=== PATIENT | female | born 1960 | race African-American/Black ===

== ENCOUNTER 2016-10-30 09:15 | Emergency (ER) | payer OTHER ==
--- NOTE | 2016-10-30 09:50 | ED.PDOC ---
History of Present Illness - General Chief Complaint: Eye Problems Stated Complaint: FELL Time Seen by Provider: 10/30/16 09:35 Source: patient Exam Limitations: no limitations - History of Present Illness Initial Comments: FELL 2 D AGO. TRIPPED ON CURB AT HOME AND R FACE HIT THE METAL TRASH CAN. NO VISION PROBLEMS. NO FOX. NO NECK ACHE. THE BONES AROUND THE R EYE ARE VERY PAINFUL. SHE WONDERS IF SHE FRACTURED HER FACE. Severity: moderate Injuries/Pain Location: face Reason for Fall: tripped Loss of Consciousness: no loss of consciousness Improving Factors: medication Associated Symptoms (Fall): denies symptoms Allergies/Adverse Reactions: Allergies Oxycodone [From Percodan] Allergy (Verified 10/30/16 09:43) Home Medications: Ambulatory Orders Aripiprazole [Abilify] 25 mg PO DAILY 03/27/14 Ferrous Fumarate [Iron] 18 mg PO DAILY 03/27/14 Trazodone HCl 100 mg PO PRN PRN 03/27/14 Meclizine HCl 25 mg PO Q6H PRN #40 tab 08/20/15 Acetaminophen W/ Codeine [Tylenol W/ CODEINE #3] 1 ea PO Q6H #20 10/30/16 Tramadol HCl 50 mg PO AC PRN #10 tab 10/30/16 Review of Systems - Review of Systems Constitutional: States: no symptoms reported EENTM: Denies: blurred vision, double vision, ear pain, nose pain Respiratory: States: no symptoms reported Cardiology: States: no symptoms reported Gastrointestinal/Abdominal: States: no symptoms reported Genitourinary: States: no symptoms reported Musculoskeletal: States: no symptoms reported Skin: States: no symptoms reported Neurological: States: no symptoms reported Endocrine: States: no symptoms reported Hematologic/Lymphatic: States: no symptoms reported All other Systems: Reviewed and Negative Past Medical History (General) - Patient Medical History Hx Seizures: Yes Hx Stroke: No Hx Dementia: No Hx Asthma: No Hx of COPD: No Hx Cardiac Disorders: No Hx Congestive Heart Failure: No Hx Pacemaker: No Hx Hypertension: No Hx Thyroid Disease: No Hx Diabetes: No Hx Gastroesophageal Reflux: No Hx Renal Disease: No Hx Cancer: No Hx Hepatitis C: Yes - Vaccination History Hx Tetanus, Diphtheria Vaccination: No Hx Influenza Vaccination: No Hx Pneumococcal Vaccination: No - Social History Hx Tobacco Use: No Hx Chewing Tobacco Use: No Hx Alcohol Use: No Hx Substance Use: No Hx Substance Use Treatment: No Hx Depression: Yes Hx Physical Abuse: No Hx Emotional Abuse: No Hx Suspected Abuse: No - Female History Patient : No Physical Exam - Physical Exam General Appearance: Alert, Well Nourished Head Injury: swelling, tenderness, other - BONES AROUND R EYE TTP AND SWOLLEN. NO CREPITUS. Eye Exam: bilateral normal ENT Exam: hearing grossly normal, no dental injury Peripheral Pulses: radial,right: 2+, radial,left: 2+ Cardiovascular/Respiratory: regular rate, rhythm, no M/R/G Gastrointestinal/Abdominal: normal bowel sounds, soft Back Exam: normal inspection, no CVA tenderness Extremity Exam: no evidence of injury, normal range of motion, non-tender Neurologic: gunner's mate m II-XII nml as tested, no motor/sensory deficits, alert Skin Exam: normal color, warm/dry, other - SMALL, MILD ABRASION R FACE. NO LACERATION. - Christiane Coma Score Best Eye Response (Christiane): (4) open spontaneously Best Verbal Response (Orange): (5) oriented Best Motor Response (Christiane): (6) obeys commands Orange Total: 15 Progress - Results/Orders Results/Orders: BRAIN CT NEG. ORBITAL CT = NONDISPLACED FRACTURE OF BOTH THE R ORBIT LATERAL WALL AND THE R ZYGOMATIC ARCH. NO SURGERY INDICATED. REST, ICE PACK. WILL RX PAIN MED. NOTE: PT REQUESTED CODEINE AFTER I ENTERED TRAMADOL, SO PT WAS JUST GIVEN CODEINE AND NOT THE TRAMADOL. Departure - Departure Clinical Impression: Fracture of orbit, Closed fracture of zygomatic arch, Closed fracture of lateral wall of orbit Disposition: Discharge to Home or Self Care Condition: Good Instructions: DI for Orbital Fracture Diet: regular diet Activity: increase activity as tolerated Referrals: Hafsa Meza NP [Primary Care Provider] - 1-2 Weeks Prescriptions: Acetaminophen W/ Codeine [Tylenol W/ CODEINE #3] 1 ea PO Q6H #20 Tramadol HCl 50 mg PO AC PRN #10 tab PRN Reason: Pain Home Medications: Ambulatory Orders Aripiprazole [Abilify] 25 mg PO DAILY 03/27/14 Ferrous Fumarate [Iron] 18 mg PO DAILY 03/27/14 Trazodone HCl 100 mg PO PRN PRN 03/27/14 Meclizine HCl 25 mg PO Q6H PRN #40 tab 08/20/15 Acetaminophen W/ Codeine [Tylenol W/ CODEINE #3] 1 ea PO Q6H #20 10/30/16 Tramadol HCl 50 mg PO AC PRN #10 tab 10/30/16
[2016-10-30 09:52] VITALS: BP 119/52; TEMP 97.8
--- NOTE | 2016-10-30 09:59 | CT ---
EXAM DESCRIPTION: Head CLINICAL HISTORY: 55 years, Female, FELL, FACE HIT METAL TRASH CAN. COMPARISON: None TECHNIQUE: Head CT was performed without IV contrast. This exam was performed according to our departmental dose-optimization program, which includes automated exposure control, adjustment of the mA and/or kV according to patient size and/or use of iterative reconstruction technique. FINDINGS: Is no acute intracranial hemorrhage. There is no midline shift or other mass effect. The ventricles and basilar cisterns are well maintained. Yang-white matter differentiation is intact. No posterior fossa lesion. There is some fluid in the right maxillary sinus only partially visualized. Right-sided facial and periorbital soft tissue swelling is noted with a minimally displaced right lateral orbital wall fracture. There is a minimally displaced fracture of the right zygomatic arch. No calvarial fracture is seen. IMPRESSION: No acute intracranial abnormality. Right-sided facial fractures including right zygomatic arch and right lateral orbital wall. These are better evaluated on today's orbital CT, please see separate report from that exam for further discussion of findings. Fluid in the right maxillary sinus possibly presenting blood and suggesting the possibility of orbital floor fracture. This is also better evaluated on today's orbital CT. Electronically signed by: Maurilio Feliz MD 10/30/2016 9:59 AM CDT
--- NOTE | 2016-10-30 10:10 | CT ---
EXAM DESCRIPTION: Orbits CLINICAL HISTORY: 55 years Female, FELL, FACE HIT METAL TRASH CAN. COMPARISON: CT of the head dated the same date TECHNIQUE: Transaxial images were obtained without intravenous contrast media. Sagittal and coronal reconstruction was performed.This exam was performed according to our departmental dose-optimization program, which includes automated exposure control, adjustment of the mA and/or kV according to patient size and/or use of iterative reconstruction technique. FINDINGS: Mucosal sinus disease is observed in the floor of the right maxillary antrum. The left maxillary antrum is clear. The exam does reveal some mucosal disease in the region of the ostium. The exam also reveals some right posterior ethmoid sinus air cell disease. The frontal sinuses are clear. The mastoid sinuses as imaged are normal. The exam does reveal soft tissue swelling about the right orbit. The exam demonstrates a nondisplaced fracture of the right-sided Mediport. Minimal nondisplaced fracturing of the lateral wall of the right orbit is observed. No intraconal or soft tissue normality is observed in the orbit. No intra-axial abnormality is seen. Mild degenerative changes are observed in the temporomandibular joints. IMPRESSION: Nondisplaced fracturing of the right zygomatic arch and lateral wall of the right orbit are observed. Minimal mucosal sinus disease is observed in the right maxillary antrum and right posterior ethmoid sinus air cells. Electronically signed by: Michelet Dos Santos MD 10/30/2016 10:10 AM CDT
[2016-10-30 11:19] VITALS: O2SAT 98
== END 2016-10-30 10:30 | disposition home or self-care (01) ==
LOC: ER 09:15
DX: S02.81XA Fracture of other specified skull and facial bones, right side, initial encounter for closed fracture (principal); S02.40EA Zygomatic fracture, right side, initial encounter for closed fracture; Z88.5 Allergy status to narcotic agent; Z79.899 Other long term (current) drug therapy; Z86.19 Personal history of other infectious and parasitic diseases; W18.09XA Striking against other object with subsequent fall, initial encounter; Y92.008 Other place in unspecified non-institutional (private) residence as the place of occurrence of the external cause

== ENCOUNTER → 2016-12-09 | Outpatient (CLI) | payer OTHER ==
--- NOTE | 2016-12-11 14:47 | MAM ---
History: Well woman exam. Date of exam: 12/09/2016 Services provided: Bilateral full field digital screening mammography. CAD, the images were reviewed with R2 computer aided detection. FINDINGS: Glandular tissue is scattered glandular pattern. Comparison with 2010 exam. No dominant mass, architectural distortion or clustered microcalcification. IMPRESSION: Benign exam Recommendation: Routine annual mammography BIRAD CATEGORY: 2 BENIGN Electronically signed by: Sandy Petty MD 12/11/2016 2:47 PM CDT Workstation: [id number]
== END ==
LOC: MAMMO 15:41
PROVIDERS: ATTEND Family Medicine
DX: Z12.31 Encounter for screening mammogram for malignant neoplasm of breast (principal)

== ENCOUNTER 2018-05-11 07:37 | Emergency (ER) | payer OTHER ==
--- NOTE | 2018-05-11 08:04 | ED.PDOC ---
History of Present Illness - General Chief Complaint: Laceration Stated Complaint: Cut to toe Time Seen by Provider: 05/11/18 08:02 Source: patient, RN notes reviewed, Vital Signs reviewed Additional Information: 57 YEAR OLD STEPPED ON SOMETHING SHARP IN HER GARAGE THIS MORNING AND SUSTAINED A CUT TO THE RIGHT 5 TOE PLANTAR SURFACE SHE REPORTS SIGNIFICANT BLEEDING SHE IS NOT ON ANY ANTICOAGULANTS - History of Present Illness Timing/Duration: 1 hour Improving Factors: nothing Worsening Factors: nothing Allergies/Adverse Reactions: Allergies Oxycodone [From Percodan] Allergy (Verified 10/30/16 09:43) Home Medications: Ambulatory Orders Aripiprazole [Abilify] 25 mg PO DAILY 03/27/14 Ferrous Fumarate [Iron] 18 mg PO DAILY 03/27/14 Trazodone HCl 100 mg PO PRN PRN 03/27/14 Meclizine HCl 25 mg PO Q6H PRN #40 tab 08/20/15 Acetaminophen W/ Codeine [Tylenol W/ CODEINE #3] 1 ea PO Q6H #20 10/30/16 Tramadol HCl 50 mg PO AC PRN #10 tab 10/30/16 Sulfa/Trimeth 800/160 (Ds) Tab [Bactrim DS Tab] 1 ea PO Q12HR #20 tab 05/11/18 Review of Systems - Review of Systems Constitutional: States: no symptoms reported EENTM: States: no symptoms reported Respiratory: States: no symptoms reported Cardiology: States: no symptoms reported Gastrointestinal/Abdominal: States: no symptoms reported Genitourinary: States: no symptoms reported Musculoskeletal: States: no symptoms reported Skin: States: no symptoms reported Endocrine: States: no symptoms reported Hematologic/Lymphatic: States: no symptoms reported Past Medical History (General) - Patient Medical History Hx Seizures: Yes Hx Stroke: No Hx Dementia: No Hx Asthma: No Hx of COPD: No Hx Cardiac Disorders: No Hx Congestive Heart Failure: No Hx Pacemaker: No Hx Hypertension: No Hx Thyroid Disease: No Hx Diabetes: No Hx Gastroesophageal Reflux: No Hx Renal Disease: No Hx Cancer: No Hx Hepatitis C: Yes - Vaccination History Hx Tetanus, Diphtheria Vaccination: No Hx Influenza Vaccination: No Hx Pneumococcal Vaccination: No - Social History Hx Tobacco Use: No Hx Chewing Tobacco Use: No Hx Alcohol Use: No Hx Substance Use: No Hx Substance Use Treatment: No Hx Depression: Yes Hx Physical Abuse: No Hx Emotional Abuse: No Hx Suspected Abuse: No - Female History Patient : No Family Medical History - Family History Mother Living Status: Hx Family Diabetes: Yes Physical Exam - Physical Exam General Appearance: Alert Eye Exam: bilateral normal Ears, Nose, Throat: hearing grossly normal, normal ENT inspection, normal pharynx Neck: non-tender, full range of motion, supple Respiratory: chest non-tender, lungs clear, normal breath sounds, no respiratory distress Cardiovascular/Chest: normal peripheral pulses, regular rate, rhythm, no edema, no gallop Extremity: other - RIGHT FOOT THERE IS A LACERATION AT THE PLANTAR SIDE OF RIGHT 5 TH TOE DEEP BUT NO BLEEDING AT THIS TIME Skin Exam: normal color, warm/dry Lymphatic: no adenopathy Procedures - Laceration/Wound Repair Right Toe Wound's Depth, Shape: linear Wound Explored: no foreign body removed Irrigated w/ Saline (cc's): 25 Anesthesia: 1% Lidocaine Volume Anesthetic (cc's): 5 Wound Debrided: minimal Suture Size/Type: 3:0, vicryl rapide Number of Sutures: 5 Sterile Dressing Applied?: Yes Splint Applied?: No Departure - Departure Clinical Impression: Laceration Time of Disposition: 08:31 Disposition: Discharge to Home or Self Care Condition: Good Departure Forms: ED Discharge - Pt. Copy, Patient Portal Self Enrollment Instructions: DI for Laceration Repair Referrals: Lara Garcia FASHION DESIGN PROFESSOR [Primary Care Provider] - 1-2 Weeks Prescriptions: Sulfa/Trimeth 800/160 (Ds) Tab [Bactrim DS Tab] 1 ea PO Q12HR #20 tab Home Medications: Ambulatory Orders Aripiprazole [Abilify] 25 mg PO DAILY 03/27/14 Ferrous Fumarate [Iron] 18 mg PO DAILY 03/27/14 Trazodone HCl 100 mg PO PRN PRN 03/27/14 Meclizine HCl 25 mg PO Q6H PRN #40 tab 08/20/15 Acetaminophen W/ Codeine [Tylenol W/ CODEINE #3] 1 ea PO Q6H #20 10/30/16 Tramadol HCl 50 mg PO AC PRN #10 tab 10/30/16 Sulfa/Trimeth 800/160 (Ds) Tab [Bactrim DS Tab] 1 ea PO Q12HR #20 tab 05/11/18
[2018-05-11] MEDS ORDERED: LIDOCAINE 1% 10 ML VIAL INJ ONE (08:08)
[2018-05-11] MEDS ORDERED: CHLORHEXIDINE GLUCONATE 4 % 15 ML UD TOP ONE (08:13)
[2018-05-11 08:41] VITALS: BP 158/93; TEMP 97; O2SAT 97
[2018-05-11] MEDS: CHLORHEXIDINE GLUCONATE 4 % 15 ML UD TOP ONE (08:44)
[2018-05-11] MEDS: LIDOCAINE 1% 10 ML VIAL INJ ONE (08:45)
[2018-05-11] MEDS ORDERED: TETANUS,DIPHTHERIA,PERTUSSIS 1 EA SYG IM ONE (09:01)
[2018-05-11] MEDS: TETANUS,DIPHTHERIA,PERTUSSIS 1 EA SYG IM ONE (09:02)
[2018-05-11] MEDS: TETANUS-DIPHTHERIA TOXOIDS (TD 1 EA SYG IM ONE (09:02)
== END 2018-05-11 09:44 | disposition home or self-care (01) ==
LOC: ER 07:37
DX: S91.114A Laceration without foreign body of right lesser toe(s) without damage to nail, initial encounter (principal); F32.9 Major depressive disorder, single episode, unspecified; R56.9 Unspecified convulsions; W45.8XXA Other foreign body or object entering through skin, initial encounter; Y92.008 Other place in unspecified non-institutional (private) residence as the place of occurrence of the external cause; Z88.5 Allergy status to narcotic agent; Z86.19 Personal history of other infectious and parasitic diseases; Z79.899 Other long term (current) drug therapy; Z23 Encounter for immunization

== ENCOUNTER → 2018-12-23 | Outpatient (CLI) | payer OTHER ==
--- NOTE | 2018-12-23 09:46 | RAD ---
EXAM DESCRIPTION: Chest,2 Views CLINICAL HISTORY: SYMPTOMS INVOLVING THE CIRCULATORY AND RESPIRATORY COMPARISON: None TECHNIQUE: PA/lateral FINDINGS: There is no acute appearing cardiac or pulmonary abnormality. Heart size is normal with normal pulmonary vascularity. No pleural effusion or pneumothorax. Lungs are clear with no consolidating infiltrate. Lateral view shows intact sternum and T-spine. IMPRESSION: No acute process is identified in the chest. Electronically signed by: Sage Corbett MD 12/23/2018 9:44 AM CDT
== END ==
LOC: YCFC.O 08:58
PROVIDERS: ATTEND Nurse Practitioner Family
DX: Z00.01 Encounter for general adult medical examination with abnormal findings (principal); R09.89 Other specified symptoms and signs involving the circulatory and respiratory systems; B18.2 Chronic viral hepatitis C; D64.9 Anemia, unspecified; E53.8 Deficiency of other specified B group vitamins

== ENCOUNTER → 2019-06-10 | Outpatient (CLI) | payer OTHER | LOC: LAB.O 10:53 | PROVIDERS: ATTEND Nurse Practitioner | DX: N39.0 Urinary tract infection, site not specified (principal) ==

== ENCOUNTER → 2019-09-29 | Outpatient (CLI) | payer OTHER | LOC: YCFC.O 15:06 | PROVIDERS: ATTEND Family Medicine | DX: R82.79 Other abnormal findings on microbiological examination of urine (principal) ==